=== PATIENT | male | born 1990 | race Caucasian/White ===

== ENCOUNTER 2022-11-06 16:55 | Emergency (ER) | payer BC, SELFPAY ==
[2022-11-06 17:02] VITALS: BP 126/81; PULSE 103; RESP 20; TEMP 36.7; O2SAT 98
--- NOTE | 2022-11-06 17:10 | ED.GENADUL_ITS ---
Discharge Plan Disposition Patient Disposition: Home Condition: Stable Discharge Details Clinical Impression: Allergic reaction Primary Care Provider: Robin Dunn ED Provider: Kaylee Lindsey Home Meds and New Rx's Prescriptions: New epinephrine [EpiPen] 0.3 mg/0.3 mL auto-injector 0.3 mg IM ONCE Qty: 2 0RF Rx Instructions: as a single dose; may repeat once prednisone 20 mg tablet 40 mg PO DAILY Qty: 8 0RF ondansetron 4 mg tablet,disintegrating 4 mg PO Q6H PRNQty: 10 0RF Discharge Instructions Instructions: General Allergic Reaction (ED) Additional Instructions: Take Benadryl 25 to 50 mg every 6 hours if needed for symptoms Referrals: Robin Dunn [Primary Care Provider] - Discharge Data Discharge Date/Time-TO BE ENTERED AT DEPARTURE: 11/06/22 18:36 Medical Decision Making Patient is hemodynamically stable clear breath sounds no respiratory distress posterior pharynx clear. He did self administer 50 mg of Benadryl prior to arrival will give him prednisone 60 mg orally and famotidine 20 mg orally He is monitored in the department and his symptoms are improving. He is stable now and ready for discharge to home hemodynamically his pulse has normalized from low 100s to low 60s blood pressure stable itching improving no shortness of breath wheezing or difficulty breathing will prescribe short steroid burst and EpiPen Medical Records Medical records reviewed: Yes I reviewed the patient's medical records. HPI General Mode of arrival: ambulatory . Date/Time Provider Initiated Documentation: 11/06/22 17:09 . Limitations to Documentation: no limitations . Information obtained by: patient . HPI Narrative: This is a 32-year-old male patient who presents with complaints of full body rash itching scratchy throat after eating red meat approximately 1 hour ago. He did take 50 mg of oral Benadryl prior to arrival. Denies any shortness of breath. No fever chills or recent illness no known allergies Related Data Home Medications Medication Instructions Recorded Confirmed epinephrine 0.3 mg/0.3 mL 0.3 mg (0.3 mL) IM ONCE #2 ea 11/06/22 injection, auto-injector (EpiPen) ondansetron 4 mg disintegrating 4 mg PO Q6H PRN #10 tabs 11/06/22 tablet prednisone 20 mg tablet 40 mg PO DAILY #8 tabs 11/06/22 Previous Rx's Medication Instructions Recorded epinephrine 0.3 mg/0.3 mL 0.3 mg (0.3 mL) IM ONCE #2 ea 11/06/22 injection, auto-injector (EpiPen) ondansetron 4 mg disintegrating 4 mg PO Q6H PRN #10 tabs 11/06/22 tablet prednisone 20 mg tablet 40 mg PO DAILY #8 tabs 11/06/22 General Stated Complaint: Allergic BRYAN: 3 Review of Systems All systems reviewed & are unremarkable except as noted in HPI and below PFSH All Active Problems (Updated 11/06/22 @ 18:25 by Kaylee Lindsey NP) Allergic reaction (Acute) Social History Smoking risk assessment performed?: No Housing: condominium Do you feel safe at home: Yes Do you feel safe in your relationship?: Yes Course Vital Signs Vital signs: Vital Signs Temperature 36.7 C 11/06/22 17:02 Pulse 103 H 11/06/22 17:02 Respiratory Rate 20 11/06/22 17:02 Blood Pressure 126/81 11/06/22 17:02 Pulse Oximetry 98 11/06/22 17:02 Temperature 36.7 C 11/06/22 17:02 Temperature Source Skin 11/06/22 17:02 Pulse 103 H 11/06/22 17:02 Respiratory Rate 20 11/06/22 17:02 Blood Pressure 126/81 11/06/22 17:02 Blood Pressure Position Sitting 11/06/22 17:02 Pulse Oximetry 98 11/06/22 17:02 Oxygen Delivery Method Room Air 11/06/22 17:02 Oxygen Flow Rate 0 11/06/22 17:02 Pain Level 0 11/06/22 17:02
[2022-11-06] MEDS: Famotidine 20 MG TAB PO (17:21)
[2022-11-06] MEDS: predniSONE 20 MG TAB 60 MG PO (17:21)
[2022-11-06 18:07] VITALS: BP 119/80; PULSE 63; O2SAT 97
== END 2022-11-06 18:36 | disposition home or self-care (01) ==
PROVIDERS: Emergency Provider Nurse Practitioner Acute Care
DX: T78.1XXA Other adverse food reactions, not elsewhere classified, initial encounter (principal); L50.9 Urticaria, unspecified; X58.XXXA Exposure to other specified factors, initial encounter
CPT/HCPCS: 99283; J7512